=== PATIENT | female | born 2000 | race Caucasian/White ===

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

== ENCOUNTER 2021-01-03 21:01 | Emergency (ER) | payer OTHER ==
[2021-01-03] MEDS ORDERED: Bicillin LA 1.2 MILLION UNITS/2 ML SYRINGE ONE (21:30)
[2021-01-03] MEDS ORDERED: Dexamethasone 10 MG/ML VIAL ONE (21:33)
[2021-01-03] MEDS ORDERED: Ondansetron ODT 4 MG TAB ONE (21:33)
[2021-01-03] MEDS ORDERED: Ibuprofen 800 MG TAB ONE (21:33)
== END 2021-01-03 21:58 | disposition home or self-care (01) ==
LOC: BURERS 21:01
DX: J02.0 Streptococcal pharyngitis (principal); J45.909 Unspecified asthma, uncomplicated
CPT/HCPCS: 96372; 99282; J0561; J1100; Q0162

== ENCOUNTER 2021-01-13 15:58 | Emergency (ER) | payer OTHER ==
[2021-01-13] MEDS ORDERED: Ibuprofen 800 MG TAB ONE (17:23)
[2021-01-14 02:24] LABS: SARS-CoV-2 PCR by NAA DETECTED (NotDetected)
== END 2021-01-13 18:18 | disposition home or self-care (01) ==
LOC: BURERS 15:58
DX: U07.1 COVID-19 (principal); J45.909 Unspecified asthma, uncomplicated
CPT/HCPCS: 87081; 87430; 87804; 99283; U0003; U0005

== ENCOUNTER 2021-06-01 04:24 | Emergency (ER) | payer OTHER ==
[2021-06-01] MEDS ORDERED: Acetaminophen 325 MG TAB ONE (05:01)
[2021-06-01 05:25] LABS: Pregnancy Test - Urine (BHCG) Negative (Negative); Pregu Control Background? CLEAR/WHITE (CLR/WHITE); Pregu Control Bar Appear? YES (CONTROL BAR)
[2021-06-01] MEDS ORDERED: Ondansetron ODT 4 MG TAB ONE (05:27)
[2021-06-01 05:28] LABS: Specific Gravity 1.015 (1.002-1.036)
== END 2021-06-01 06:55 | disposition home or self-care (01) ==
LOC: BURERS 04:24
DX: S06.0X9A Concussion with loss of consciousness of unspecified duration, initial encounter (principal); S42.034A Nondisplaced fracture of lateral end of right clavicle, initial encounter for closed fracture; S93.601A Unspecified sprain of right foot, initial encounter; W10.9XXA Fall (on) (from) unspecified stairs and steps, initial encounter; J45.909 Unspecified asthma, uncomplicated; Z79.899 Other long term (current) drug therapy
CPT/HCPCS: 70450; 81025; Q0162

== ENCOUNTER 2021-07-24 19:04 | Emergency (ER) | payer OTHER ==
[2021-07-24] MEDS ORDERED: hydrOXYzine 25 MG TAB ONE (19:52)
[2021-07-24] MEDS ORDERED: Ondansetron ODT 4 MG TAB ONE (19:52)
== END 2021-07-24 20:20 | disposition home or self-care (01) ==
LOC: BURERS 19:04
DX: F41.0 Panic disorder [episodic paroxysmal anxiety] (principal); F41.1 Generalized anxiety disorder; J45.909 Unspecified asthma, uncomplicated; Z79.899 Other long term (current) drug therapy
CPT/HCPCS: 99283; Q0162

== ENCOUNTER 2022-01-28 22:00 | Emergency (ER) | payer OTHER ==
[2022-01-28 22:57] LABS: Bilirubin Negative (Negative); Blood, Urine Large (Negative); Clarity Cloudy (Clear); Glucose, Urine (Dipstick) Negative (Negative); Ketone, Urine Negative (Negative); Leukocyte Negative (Negative); Nitrite Negative (Negative); Protein, Urine (Dipstick) 100 mg/dL (Neg-Trace); Specific Gravity, Urine 1.025 (1.005-1.030); Urobilinogen 0.2 mg/dL (Less than 2)
[2022-01-28 23:00] LABS: #Basophils 0.1 thou/uL (0.0-0.2); #Eosinphils 0.2 thou/uL (0.0-0.7); #Lymphocytes 2.7 thou/uL (1.20-3.40); #Monocytes 0.8 thou/uL (0.11-0.59); #Neutrophils 3.8 thou/uL (1.40-6.50); %Basophils 0.7 % (0.0-1.0); %Eosinophils 2.5 % (0.0-10.0); %Lymphocytes 35.7 % (28.0-48.0); %Neutrophils 50.2 % (31.0-61.0); Hemoglobin 12.5 g/dL (12.0-16.0); Mean Corpuscular Hemoglobin 30.6 pg (25.0-35.0); Mean Corpuscular Volume 90.1 fL (78.0-98.0); Mean Platelet Volume 7.7 fL (7.4-10.4); Platelet Count 353 thou/uL (130-400); RBC Distribution Width 12.2 % (11.5-14.5); Red Blood Cell (RBC) Count 4.09 mill/uL (4.00-5.20); White Blood Cell (WBC) Count 7.6 thou/uL (4.8-10.8)
[2022-01-28 23:03] LABS: Pregnancy Test - Urine (BHCG) Negative (Negative); Pregu Control Background? CLEAR/WHITE (CLR/WHITE); Pregu Control Bar Appear? YES (CONTROL BAR); Specific Gravity 1.025 (1.002-1.036)
[2022-01-28 23:04] LABS: Bacteria/HPF Rare-Few HPF (None Seen); Mucous/LPF 1+ LPF (<2+); RBC/HPF Greater than 50 HPF (0-3); Squamous Epithelial 0-3 HPF (0-3); WBC/HPF 0-3 HPF (0-3)
[2022-01-28 23:05] LABS: Prothrombin Time 13.1 sec (12.0-14.7)
[2022-01-28 23:10] LABS: ALT (SGPT) 27 U/L (8-55); AST (SGOT) 21 U/L (5-34); Albumin 4.2 g/dL (3.5-5.0); Alkaline Phosphatase 65 U/L (40-100); Anion Gap 13 mmol/L (10-20); BUN (Urea Nitrogen) 18 mg/dL (7.0-18.7); Bilirubin, Total 0.2 mg/dL (0.2-1.2); Calc. Creatinine Clearance 0 mL/min (70-130); Carbon Dioxide 23 mmol/L (22-29); Chloride 105 mmol/L (98-107); Estimated GFR 123; Globulin 2.9 g/dL (2.4-3.5); Glucose 93 mg/dL (70-105); Protein, Total 7.1 g/dL (6.0-8.3); Sodium 137 mmol/L (136-145)
== END 2022-01-28 23:55 | disposition home or self-care (01) ==
LOC: BURERS 22:00
DX: N94.6 Dysmenorrhea, unspecified (principal); J45.909 Unspecified asthma, uncomplicated; Z79.899 Other long term (current) drug therapy
CPT/HCPCS: 36415; 80053; 81003; 81015; 81025; 85025; 85610; 87086; 99284

== ENCOUNTER 2022-03-24 10:52 | Emergency (ER) | payer OTHER | END 2022-03-24 11:32 | disposition home or self-care (01) | LOC: BURERS 10:52 | DX: J06.9 Acute upper respiratory infection, unspecified (principal) | CPT/HCPCS: 87804; 87807; 99284 ==

== ENCOUNTER 2022-04-30 20:40 | Emergency (ER) | payer OTHER ==
[2022-04-30] MEDS ORDERED: HYDROcodone/Acetaminophen 5/325 mg Tablet ONE (21:03)
[2022-04-30] MEDS ORDERED: Lidocaine 1% (PF) 30 ML VIAL ONE (21:21)
[2022-04-30] MEDS ORDERED: Bacitracin 1 PK ONE (21:34)
== END 2022-04-30 21:56 | disposition home or self-care (01) ==
LOC: BURERS 20:40
DX: S81.811A Laceration without foreign body, right lower leg, initial encounter (principal); S99.911A Unspecified injury of right ankle, initial encounter; W18.30XA Fall on same level, unspecified, initial encounter; Z79.899 Other long term (current) drug therapy
CPT/HCPCS: 12001; J2001

== ENCOUNTER 2022-06-21 13:24 | Emergency (ER) | payer OTHER, SELFPAY ==
[2022-06-21] MEDS ORDERED: Morphine 2 MG/ML VIAL ONE (13:49)
== END 2022-06-21 13:59 | disposition home or self-care (01) ==
LOC: BURERS 13:24
DX: G89.18 Other acute postprocedural pain (principal); M25.571 Pain in right ankle and joints of right foot
CPT/HCPCS: 96372; 99283; J2272

== ENCOUNTER 2022-07-04 13:44 | Emergency (ER) | payer OTHER, SELFPAY | END 2022-07-04 14:09 | disposition home or self-care (01) | LOC: BURERS 13:44 | DX: H66.92 Otitis media, unspecified, left ear (principal); F17.290 Nicotine dependence, other tobacco product, uncomplicated | CPT/HCPCS: 99283 ==

== ENCOUNTER 2022-07-24 16:06 | Emergency (ER) | payer OTHER ==
[2022-07-24] MEDS ORDERED: predniSONE 20 MG TAB ONE (17:03)
== END 2022-07-24 17:07 | disposition home or self-care (01) ==
LOC: BURERS 16:06
DX: H92.01 Otalgia, right ear (principal); F17.290 Nicotine dependence, other tobacco product, uncomplicated
CPT/HCPCS: 99282; J7512

== ENCOUNTER 2022-08-01 17:04 | Emergency (ER) | payer OTHER ==
[2022-08-01] MEDS ORDERED: Acetaminophen 500 MG TAB ONE (17:25)
== END 2022-08-01 18:00 | disposition home or self-care (01) ==
LOC: BURERS 17:04
DX: H92.03 Otalgia, bilateral (principal); F17.290 Nicotine dependence, other tobacco product, uncomplicated; Z79.899 Other long term (current) drug therapy
CPT/HCPCS: 99282

== ENCOUNTER 2023-10-11 20:20 | Emergency (ER) | payer OTHER, SELFPAY ==
[2023-10-11] MEDS ORDERED: Ketorolac Tromethamine 30 MG (1 mL) VIAL ONE (21:10)
[2023-10-11 21:33] LABS: #Basophils 0.1 thou/uL (0.0-0.2); #Eosinphils 0.1 thou/uL (0.0-0.7); #Lymphocytes 2.1 thou/uL (1.20-3.40); #Monocytes 0.7 thou/uL (0.11-0.59); #Neutrophils 2.7 thou/uL (1.40-6.50); %Basophils 1.9 % (0.0-1.0); %Eosinophils 2.2 % (0.0-10.0); %Lymphocytes 36.6 % (21.0-51.0); %Monocytes 11.6 % (0.0-10.0); %Neutrophils 47.7 % (42.0-75.0); Hematocrit 37.2 % (36.0-47.0); Hemoglobin 12.2 g/dL (12.0-16.0); Mean Corpuscular HGB CONC 32.8 g/dL (32.0-36.0); Mean Corpuscular Hemoglobin 27.5 pg (27.0-31.0); Mean Platelet Volume 8.4 fL (7.4-10.4); Platelet Count 313 10x3/uL (130-400); RBC Distribution Width 13.5 % (11.5-14.5); Red Blood Cell (RBC) Count 4.43 mill/uL (4.20-5.40); White Blood Cell (WBC) Count 5.7 10x3/uL (4.8-10.8)
[2023-10-11 21:35] LABS: ALT (SGPT) 41 U/L (8-55); AST (SGOT) 24 U/L (5-34); Albumin 4.4 g/dL (3.5-5.0); Alkaline Phosphatase 67 U/L (40-110); Anion Gap 14 mmol/L (10-20); BUN (Urea Nitrogen) 15 mg/dL (7.0-18.7); Bilirubin, Total 0.2 mg/dL (0.2-1.2); Calc. Creatinine Clearance 0 mL/min (70-130); Calcium 10.1 mg/dL (7.8-10.44); Carbon Dioxide 20 mmol/L (22-29); Chloride 110 mmol/L (98-107); Estimated GFR 105; Globulin 2.6 g/dL (2.4-3.5); Glucose 80 mg/dL (70-105); Lipase 35 U/L (8-78); Potassium 3.8 mmol/L (3.5-5.1); Sodium 140 mmol/L (136-145)
[2023-10-11 21:40] LABS: Bilirubin Negative (Negative); Blood, Urine Large (Negative); Clarity Clear (Clear); Glucose, Urine (Dipstick) Negative (Negative); Ketone, Urine Negative (Negative); Leukocyte Negative (Negative); Nitrite Negative (Negative); Protein, Urine (Dipstick) Negative (Neg-Trace); Specific Gravity, Urine Greater/Equal 1.030 (1.005-1.030); Urobilinogen 0.2 mg/dL (Less than 2)
[2023-10-11 21:53] LABS: Bacteria/HPF Rare-Few HPF (None Seen); CAUTI Indications for Culture Alt mental st,lethar; RBC/HPF 21-50 HPF (0-3); Squamous Epithelial 0-3 HPF (0-3); WBC/HPF 0-3 HPF (0-3)
[2023-10-11 21:54] LABS: Urine Culture Reflex No No
[2023-10-11 21:56] LABS: Pregnancy Test - Urine (BHCG) Negative (Negative); Pregu Control Background? CLEAR/WHITE (CLR/WHITE); Pregu Control Bar Appear? YES (CONTROL BAR); Specific Gravity 1.022 (1.002-1.036)
== END 2023-10-11 22:46 | disposition home or self-care (01) ==
LOC: BURERS 20:20
DX: K80.50 Calculus of bile duct without cholangitis or cholecystitis without obstruction (principal)
CPT/HCPCS: 80053; 81001; 81025; 83690; 85025; 96374; J1885